=== PATIENT | male | born 1960 | race Caucasian/White ===

== ENCOUNTER → 2021-08-01 13:53 | Outpatient (BNVA) | payer OTHER, SELFPAY | PROVIDERS: Visit Provider Nurse Practitioner Family | DX: G43.109 Migraine with aura, not intractable, without status migrainosus (principal); M47.27 Other spondylosis with radiculopathy, lumbosacral region; M53.3 Sacrococcygeal disorders, not elsewhere classified; I73.9 Peripheral vascular disease, unspecified; B94.8 Sequelae of other specified infectious and parasitic diseases; G89.4 Chronic pain syndrome | CPT/HCPCS: 99202 ==

== ENCOUNTER → 2021-08-29 14:11 | Outpatient (BNVA) | payer OTHER, SELFPAY | PROVIDERS: PCP Registered Nurse; Visit Provider Nurse Practitioner Family | DX: Z13.89 Encounter for screening for other disorder (principal) | CPT/HCPCS: Q3014 ==

== ENCOUNTER → 2021-11-03 10:12 | Outpatient (BNVA) | payer OTHER, SELFPAY | PROVIDERS: PCP Registered Nurse; Visit Provider Anesthesiology | DX: M53.3 Sacrococcygeal disorders, not elsewhere classified (principal); M47.27 Other spondylosis with radiculopathy, lumbosacral region; I73.9 Peripheral vascular disease, unspecified; G89.4 Chronic pain syndrome; G43.109 Migraine with aura, not intractable, without status migrainosus | CPT/HCPCS: Q3014 ==

== ENCOUNTER 2021-11-21 06:21 | Outpatient (REF) | payer OTHER, SELFPAY ==
--- NOTE | ~2021-11-21 | FL_ITS ---
EXAMINATION: XR FLUOROSCOPY WITH IMAGES CLINICAL INFORMATION: M47.27 - Other spondylosis with radiculopathy, lumbosacral region [facility] TECHNIQUE: Fluoroscopy performed by Dr. Yakov Alfonso. Fluoroscopy time: 3 seconds DAP: 2.06 Gycm2 Images: 1 FINDINGS: There is a spinal needle overlying the outer right L5 neural foramen. There is transforaminal epidural contrast seen. No visible vascular communication. There are scattered artifactual ringlike densities overlying the image possibly contacts from an abdominal wall mesh. FL/FL guidance in treatment room IMPRESSION: Fluoroscopy for pain management procedures.
== END 2021-11-21 06:22 | disposition home or self-care (01) ==
LOC: HO.RADIR 06:21
PROVIDERS: Visit Provider Anesthesiology
DX: M47.27 Other spondylosis with radiculopathy, lumbosacral region (principal); M53.3 Sacrococcygeal disorders, not elsewhere classified; I73.9 Peripheral vascular disease, unspecified; G89.4 Chronic pain syndrome; G43.109 Migraine with aura, not intractable, without status migrainosus
CPT/HCPCS: 64483; J3300; Q9966

== ENCOUNTER → 2021-12-08 14:50 | Outpatient (BNVA) | payer OTHER, SELFPAY | PROVIDERS: PCP Registered Nurse; Visit Provider Anesthesiology | DX: S06.4X9A Epidural hemorrhage with loss of consciousness of unspecified duration, initial encounter (principal); G06.2 Extradural and subdural abscess, unspecified | CPT/HCPCS: Q3014 ==

== ENCOUNTER 2021-12-14 19:20 | Outpatient (REF) | payer OTHER, SELFPAY ==
--- NOTE | ~2021-12-14 | MR_ITS ---
EXAMINATION: MR LUMBAR SPINE WITHOUT CONTRAST CLINICAL INFORMATION: Epidural hemorrhage. Loss of consciousness. Lower back pain. Bilateral leg pain and weakness. COMPARISON: Lumbar spine MRI from 08/17/2021. TECHNIQUE: MRI of the lumbar spine was obtained using routine sequences without contrast. FINDINGS: Normal anatomic alignment. Normal, homogeneous marrow signal throughout. The vertebral body heights are maintained. Mild degenerative disc disease from T11-L5 with partial loss of disc height and desiccation. The conus medullaris terminates at the level of L1. The distal spinal cord is normal in appearance. Mild subcutaneous edema within the soft tissues of the back from L2-L5. No additional significant abnormalities of the paraspinal musculature. There is a 4.2 cm T2 hyperintense cyst associated with the right kidney. Otherwise, limited evaluation of the intra-abdominal structures without significant abnormalities. Retroaortic left renal vein. The abdominal aorta is of normal contour and caliber. AXIAL SPINAL LEVELS: L1-L2: Mild diffuse disc bulge. There is no facet joint arthropathy. There is no neural foraminal stenosis. There is no spinal canal stenosis. L2-L3: Mild diffuse disc bulge. There is mild bilateral facet joint arthropathy. There is mild bilateral neural foraminal stenosis. There is no spinal canal stenosis. L3-L4: Mild diffuse disc bulge. There is moderate right and mild left facet joint arthropathy. There is moderate left and mild right neural foraminal stenosis. There is narrowing of the subarticular zones with no overt spinal canal stenosis centrally. L4-L5: Mild diffuse disc bulge. There is moderate left and mild right facet joint arthropathy. There is moderate left and mild right neural foraminal stenosis. There is stenosis of the subarticular zones with no overt spinal canal stenosis centrally. L5-S1: Mild diffuse disc bulge. There is moderate bilateral facet joint arthropathy. There is mild bilateral neural foraminal stenosis. There is no spinal canal stenosis. MR/MR lumbar spine wo con IMPRESSION: Mild to moderate multilevel degenerative spondyloarthropathy of the lumbar spine as described in detail above. Most notably, there are narrowing/stenoses of the subarticular zones and moderate neural foraminal stenoses at L3-L4 and L4-L5. No overt spinal canal stenosis centrally.
== END 2021-12-14 19:21 | disposition home or self-care (01) ==
LOC: HO.MRI 19:20
PROVIDERS: Visit Provider Anesthesiology
DX: S06.4X9A Epidural hemorrhage with loss of consciousness of unspecified duration, initial encounter (principal)
CPT/HCPCS: 72148

== ENCOUNTER → 2022-01-02 14:43 | Outpatient (BNVA) | payer OTHER, SELFPAY | PROVIDERS: PCP Registered Nurse; Visit Provider Nurse Practitioner Family | DX: G43.109 Migraine with aura, not intractable, without status migrainosus (principal); I73.9 Peripheral vascular disease, unspecified; M53.3 Sacrococcygeal disorders, not elsewhere classified; M47.27 Other spondylosis with radiculopathy, lumbosacral region; G89.4 Chronic pain syndrome | CPT/HCPCS: Q3014 ==

== ENCOUNTER → 2022-02-01 14:04 | Outpatient (BNVA) | payer OTHER, SELFPAY | PROVIDERS: PCP Registered Nurse; Visit Provider Nurse Practitioner Family | DX: G89.4 Chronic pain syndrome (principal); M53.3 Sacrococcygeal disorders, not elsewhere classified; M47.27 Other spondylosis with radiculopathy, lumbosacral region; M51.36 Other intervertebral disc degeneration, lumbar region; G43.109 Migraine with aura, not intractable, without status migrainosus; I73.9 Peripheral vascular disease, unspecified | CPT/HCPCS: 99212 ==

== ENCOUNTER 2025-03-29 13:27 | Outpatient (AMB) | payer OTHER, SELFPAY ==
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
[2025-03-29 13:42] VITALS: BP 162/80; PULSE 66; O2SAT 97
--- OUTSIDE RECORDS SUMMARY | 2025-03-29 16:36 | XMS_ITS | Encounter Summary ---
Author Organization [facility] Address [address] [place] [address] Encounters * CPT with Leobardo Reyes at [facility] on 2024-11-20 63 y/o male Patient seen by PCP for virtual visit for report of gout flare located in new location, right heel.Patient was treated with short course of prednisone 10 mg 3 tablets daily x 5 days. Patient completed treatment Saturday noting relief, however, patient has since returned to right heel. PCP request visit to assess to r/o other infection or other non-gout causes. { reasonForRequest : pain , patientReports : , denies& quot;:[], chiefComplaints : Extremity Pain , pmh : Hypertension,COPD/Asthma, Coronary Artery Disease, Diabetes Mellitus Type 2, Sleep Apnea, Gout, Chronic Pain", allergies : Latex, Butrans, Duloxetine, Tramadol , otherAllergies : null, painAssessment : , visitOutcome : , additionalComments : HPI reviewed } Dispatched to the call address for the male with heel pain. Pt was seen via telehealth visit by hisPCP after having gout pain in his right heel for 2 weeks. She prescribed him 5 days of low dose Prednisone which did help but after a day and a half of finishing the script he started having the painagain. He called his PCP back who requested [facility] visit to rule out infection. Pt states the pain hurts exactly like his other gout flair ups. He has tried other medications but none of which have helped. Pt denies chest pain, difficulty breathing/SoB, n/v/d, cough or other complaints at this time. Pt was found sitting in living room recliner, CAOx4, airway open and patent, breathing non labored,able to speak in full sentences, -JVD, -HEENT, skin PWD with good turgor, mucous membranes pink andmoist, pupils PERRL, abd soft non tender/distended, lungs CTA, +CMSx4, right heel slightly swollen but no erythema or warmth noted-non infected appearing. Gout Pt was assessed. Picture of affected foot uploaded for [facility]. [facility] consulted. [facility] spoke directly with Pt. POC Finger stick blood glucose (205). Script called into preferred pharmacy. Red flags discussed. ALL times are approx. IV_(FLUIDS_AND/OR_MEDICATION), MEDICATION_IM, ORAL_MEDICATION, WOUND_CARE, ORTHOSTATIC_VITAL_SIGNS Written by Leobardo Reyes on 2024-11-20
--- OUTSIDE RECORDS SUMMARY | 2025-03-29 16:36 | XMS_ITS | Continuity of Care Document ---
Author Name Leobardo Reyes Address [address] [place] [id number] Organization Unknown Address [address] [place] [address] Medications No known medications Problems No known problems
--- OUTSIDE RECORDS SUMMARY | 2025-03-29 16:36 | XMS_ITS | Clinical Summary ---
Author Organization [facility] Address [address] [place] [address] Phone Care Team Providers Care Spearer Name Role Phone Padma Cartagena MD Primary Care Provider + Allergies Active Allergy Reactions Criticality Noted Date Comments Buprenorphine 06/12/2024 Mood changes Duloxetine 06/12/2024 Mood changes Latex Rash Medium 07/02/2024 Thiazides Other High 11/21/2022 Kidney failure Tramadol Nausea And Vomiting 06/12/2024 Medications aspirin 81 mg EC tablet Take 1 tablet (81 mg total) by mouth 1 (one) time each day. Active amLODIPine (NORVASC) 10 mg tablet Take 1 tablet (10 mg total) by mouth 1 (one) time each day. Active acetaminophen (TYLENOL 8 HOUR) 650 mg 8 hr tablet Take 1 tablet (650 mg total) by mouth every 8 (eight) hours if needed. Active clopidogreL (PLAVIX) 75 mg tablet Take 1 tablet (75 mg total) by mouth 1 (one) time each day. Active fluticasone propionate (FLONASE) 50 mcg/actuation nasal spray Administer 1 spray into each nostril 1 (one) time each day. Shake gently. Before first use, prime pump. After use, clean tip and replace cap. Active hydrALAZINE (APRESOLINE) 25 mg tablet Take 1 tablet (25 mg total) by mouth 2 (two) times a day. Active lisinopril (PRINIVIL,ZESTRIL) 40 mg tablet Take 1 tablet (40 mg total) by mouth 1 (one) time each day. Active melatonin 3 mg tablet Take 1 tablet (3 mg total) by mouth at bedtime. Active metFORMIN XR (GLUCOPHAGE-XR) 750 mg 24 hr tablet Take 1 tablet (750 mg total) by mouth 1 (one) time each day with dinner. Do not crush, chew, or split. Active metoprolol succinate (TOPROL-XL) 100 mg 24 hr tablet Take 1 tablet (100 mg total) by mouth 1 (one) time each day. Do not crush or chew. Active nitroglycerin (NITROSTAT) 0.[address] 1 tablet (0.4 mg total) under the tongue every 5 (five) minutes if needed for chest pain. Active ondansetron ODT (ZOFRAN-ODT) 4 mg disintegrating tablet Dissolve 1 tablet (4 mg total) on top of the tongue every 8 (eight) hours if needed for nausea or vomiting. Active alirocumab (Praluent Pen) 75 mg/mL pen injector Inject 1 mL (75 mg total) under the skin every 14 (fourteen) days. Active rosuvastatin (CRESTOR) 5 mg tablet Take 1 tablet (5 mg total) by mouth 1 (one) time each day. Active tamsulosin (FLOMAX) 0.4 mg 24 hr capsule Take 1 capsule (0.4 mg total) by mouth 1 (one) time each day. Capsules should be taken 30 minutes following the same meal each day. Active albuterol HFA (Ventolin HFA) 90 mcg/actuation inhaler Inhale 2 puffs by mouth every 6 (six) hours if needed for wheezing. Active cholecalciferol (VITAMIN D-3) 50 mcg (2,000 unit) tablet Take 1 tablet (2,000 Units total) by mouth 1 (one) time each day. Active polyethylene glycol (Golytely) 236-22.74-6.74 -5.86 gram solution Take 4L by mouth once for one dose. May substitue any PEG. Starting at 6PM the night before your procedure drink 1 8oz glasses at your own pace until you complete half of the gallon. Finish 2nd half of the gallon 5 hours before your procedure. 4000 mL 10/14/19 25 Active Additional Information Patient not taking.Reported on 10/15/2024 bisacodyL (DULCOLAX) 5 mg EC tablet Take 2 tablets by mouth right before beginning bowel prep. See instructions provided by the office 2 tablet 10/14/19 25 Active Active Problems Problem Noted Date Diagnosed Date Carotid disease, bilateral ([facility] V24) 021 Overview (06/26/2024): Last Assessment & Plan: He does not want go back to the same vascular team for follow-up. I will arrange carotid duplex. If necessary, I will refer him to a different vascular team. Coronary artery disease involving coronary bypas s graft 10/20/2020 Overview (06/26/2024): Last Assessment & Plan: Stable without angina symptoms. I will repeat lipid profile. He is on Praluent injection and tolerating well. He is cleared for epidural injection. Hyperlipidemia 10/20/2020 Overview (06/26/2024): Last Assessment & Plan: With poor tolerance to statin. Hypertension 10/20/2020 Overview (06/26/2024): Last Assessment & Plan: Blood pressure mildly elevated. I will resume Avapro at 75 mg daily. Surgical History Surgery Date Site/Laterality Comments CYSTOSCOPY INSERTION / REMOV AL STENT / STONE CORONARY ARTERY BYPASS GRAFT Bilateral B CAROTID STENTS HERNIA REPAIR CAROTID ENDARTERECTOMY Left x2 surgeries CARDIAC CATHETERIZATION with stent placement Medical History Medical History Date Comments Dysphagia DX:Dysphagia Diabetes mellitus type 2, co ntrolled, with complications ([facility] V24, [facility] V28) DX:Diabetes mellitus type 2, controlled, with complications ([facility]) Gastric regurgitation DX:Gastric regurgitation Nausea and vomiting DX:Nausea an d vomiting/related to migrane Functional dyspepsia DX:Function al dyspepsia Hx of migraine headaches DX:Hx o f migraine headaches Adverse effect of anesthesia LUIS EDUARDO D TIME PUTTING PT ASLEEP Chronic kidney disease STONES Stroke ([facility] V24, [facility] V28) SEVERAL TIA Arthritis Joint pain Angina pectoris ([facility] V24) Heart disease , CAROTID STENOS IS, CAD Peripheral vascular disease ([facility] V24) Hypertension Hyperlipidemia Social History Tobacco Use Types Packs/Day Years Used Date Smoking Tobacco: Every Day Cigarettes Smokeless Tobacco: Never Tobacco Cessation:Ready to Q uit: Not Asked; Counseling Given: Not Answered Alcohol Use Standard Drinks/Week Comments Not Currently 0 (1 standard drink = 0.6 oz pur e alcohol) Interpersonal Safety Answer Date Record ed Physical Abuse Unrecognized value 07/31/2024 Verbal Abuse Unrecognized value 07/31/2024 Sex and Gender Information Value Date Recorded Sex Assigned at Male 07/30/2024 12:22 PM EST Legal Sex Male 1:27 AM EST Gender Identity Male 07/30/2024 12:22 PM EST Sexual Orientation Straight 07/30/2024 12 :22 PM EST Obstetrics History Last Filed Vital Signs Vital Sign Reading Time Taken Comments Blood Pressure 116/64 10/15/2024 3:17 PM EDT Pulse 82 10/15/2024 3:17 PM EDT Temperature 36.9 C (98.4 F) 07/31/2024 1:01 PM EST Respiratory Rate 20 07/31/2024 1:01 PM EST Oxygen Saturation 95% 10/15/2024 3:17 PM EDT Inhaled Oxygen Concentration - - Weight 90.7 kg (200 lb) 10/15/2024 3:17 PM EDT Height 175.3 cm (5' 9 ) 10/15/2024 3:17 PM EDT Body Mass Index 29.53 10/15/2024 3:17 PM EDT Plan of Treatment Upcoming Encounters Date Type Department Care Team (Late st Contact Info) Description 04/12/2025 3:00 PM EST Office Visit [facility] [address] [place] [phone] Gerson Hoffman MD [address] [place] [phone] 05/20/2025 1:00 PM EST Office Visit [facility] [address] [facility] [address] [place] [phone] Robbin Patel MD [address] [place] [address] [place] [phone] Health Maintenance Due Date Last Done Comments Abdominal Aortic Aneurysm (AAA) Screen 05/19/2022 Hepatitis C Screening 05/19/2022 Medicare Annual Wellness Visit 05/19/2022 Social Influencers of Health Screening 05/19/2022 Hypertension/CHF/CAD Annual BMP Blood Test 05/20/2022 09/12/2002 Depression Screening 06/10/2024 Colorectal Cancer Screening: Colonoscopy 08/12/2024 08/13/2019 COVID-19 Vaccine (6 - Mixed Product risk season) 2025 05/01/2024, 04/24/2023, 04/13/2022, Additional history exists Influenza Vaccine (#1) 2025 , 07/03/2023, 04/13/2022, Additional history exists Falls Risk Assessment 07/31/2025 07/31/2024 Cholesterol Screening (Lipid Panel) 06/19/2027 06/19/2022 DTaP,Tdap,and Td Vaccines (2 - Td or Tdap) 07/20/2030 07/20/2020 Zoster Vaccines Completed 10/03/2020, 07/20/2020 Pneumococcal Vaccine: 50+ Years Completed 11/19/2022, 03/10/2020 RSV Immunization Adult Patients Completed 04/24/2023 HIB Vaccines Aged Out No longer eligi ble based on patient's age to complete this topic HPV Vaccines Aged Out No longer eligi ble based on patient's age to complete this topic Hepatitis A Vaccines Aged Out No long er eligible based on patient's age to complete this topic Hepatitis B Vaccines Aged Out No long er eligible based on patient's age to complete this topic IPV Vaccines Aged Out No longer eligi ble based on patient's age to complete this topic MMR Vaccines Aged Out No longer eligi ble based on patient's age to complete this topic Meningococcal ACWY Vaccine Aged Out N o longer eligible based on patient's age to complete this topic Meningococcal B Vaccine Aged Out No l onger eligible based on patient's age to complete this topic RSV Immunization Patients Under 20 months Aged Out No longer eligible based on patient's age to complete this topic Varicella Vaccines Aged Out No longer eligible based on patient's age to complete this topic Procedures Procedure Name Priority Date/Time Associated Diagnosis Comments LIPID PANEL Routine 06/19/2022 [facility] COLONOSCOPY Routine 08/13/2019 ANNUAL BMP BLOOD TEST Routine 09/12/2002 from Last 3 Months or Most Recently Relevant to Health Maintenance Results * (ABNORMAL) Lipid panel (06/19/2022) [facility] LDL/HDL Ratio 6(A) 1 - 5 Triglycerides 319(A) 10 - 160 mg/dL Cholesterol 244(A) 10 - 240 mg/dL HDL 42 32 - 96 mg/dL LDL Cholesterol 138 62 - 185 mg/dL Blood Venous blood specimen / Unknown Historical Provider LAB BLOOD ORDERABLES Victorina l Result * Colonoscopy (08/13/2019) [facility] Colonoscopy no interpretation , abstracted Anatomical Region Laterality Modality Other [facility] Provider HEALTH MAINTENANCE Final Result * Annual BMP Blood Test (09/12/2002) [facility] Annual BMP Blood Test abstracted Historical Provider HEALTH MAINTENANCE Final Result from Last 3 Months or Most Recently Relevant to Health Maintenance Insurance [employer] Member Subscriber Plan / Payer (Ef fective 2019-Present) Name:BARTOLOME PUGH Relation to Subscriber:Self Name:Bartolome Pugh Payer ID:[id number] Group ID:[id number] Type:Not on file Address: [place] [address] [place] [phone] Care Teams Spearer Relationship Specialty Start Date End Date Padma Cartagena MD PCP - General Internal Medicine 06/12/24
== END 2025-03-29 15:12 | disposition home or self-care (01) ==
LOC: HO.HSMS 13:28
PROVIDERS: PCP Registered Nurse; Visit Provider Nurse Practitioner Family
DX: R51.9 Headache, unspecified (principal); G45.9 Transient cerebral ischemic attack, unspecified; G44.229 Chronic tension-type headache, not intractable; B94.8 Sequelae of other specified infectious and parasitic diseases; I73.9 Peripheral vascular disease, unspecified; I65.29 Occlusion and stenosis of unspecified carotid artery
CPT/HCPCS: 99204

== ENCOUNTER → 2025-03-29 13:27 | Outpatient (BNVA) | payer OTHER, SELFPAY | PROVIDERS: PCP Registered Nurse; Visit Provider Nurse Practitioner Family | DX: G44.229 Chronic tension-type headache, not intractable (principal); B94.8 Sequelae of other specified infectious and parasitic diseases; I73.9 Peripheral vascular disease, unspecified; I65.29 Occlusion and stenosis of unspecified carotid artery | CPT/HCPCS: 99202 ==

== ENCOUNTER → 2025-05-14 12:39 | Outpatient (BNV) | payer OTHER, SELFPAY | PROVIDERS: Visit Provider Radiology Diagnostic Radiology | DX: I67.82 Cerebral ischemia (principal); R90.82 White matter disease, unspecified; I65.23 Occlusion and stenosis of bilateral carotid arteries; R51.9 Headache, unspecified | CPT/HCPCS: 70544; 70549; 70553 ==

== ENCOUNTER 2025-05-14 12:49 | Outpatient (REF) | payer OTHER, SELFPAY ==
--- NOTE | ~2025-05-14 | MR_ITS ---
EXAMINATION: MR ANGIOGRAPHY NECK WITHOUT AND WITH CONTRAST CLINICAL INFORMATION: Headache, unspecified. COMPARISON: None available. TECHNIQUE: MRA of the neck was obtained using routine sequences without and with contrast. Intravenous contrast: Gadavist 10 mL. The degree of stenosis determined by criteria similar to NASCET. FINDINGS: 2-D [id number] imaging demonstrates and retrograde flow in the bilateral carotid and bilateral vertebral arteries. 3-D [id number] imaging and postcontrast imaging demonstrates a mild to moderate, approximate 40% stenosis of the mid right common carotid artery (series 7, image 29). There is loss of flow-related enhancement at the right carotid bulb, extending into the proximal ICA, consistent with a high-grade, likely 90% stenosis. Loss of flow related enhancement spans approximately 3.1 cm craniocaudal spanning the most distal CCA into the carotid bulb, and into the proximal ICA. On the LEFT, there is normal flow-related enhancement of the CCA to the level of the carotid bulb. Irregular plaque within the carotid bulb and proximal ICA results in a short segment proximal ICA stenosis of approximately 50% (series 12, image 30), spanning a length of approximately 7 mm. The right vertebral artery demonstrates antegrade flow, however there is a high-grade stenosis in the mid V2 segment (series 12, image 49; series 1063, image 3). There may also be a high-grade origin stenosis present (series 1063, image 4). There is restitution of flow related enhancement after this region with antegrade flow into the skull base. The left vertebral artery is dominant, however there is severely diminished flow related enhancement in the origin suggesting a high-grade stenosis (series 1077, image 9).. The vessel otherwise demonstrates normal flow related enhancement into the skull base. MR/MR angio neck wo/w con IMPRESSION: 1. There is an approximate 90% stenosis of the RIGHT proximal ICA, with reconstitution of flow related enhancement in the more distal RIGHT ICA. 2. There is an approximate 40% stenosis in the mid RIGHT CCA. 3. There is a moderate approximate 50% short segment stenosis of the LEFT ICA just after the origin, with reconstitution of normal flow related enhancement in the more distal left ICA. 4. There is a suspected high-grade stenosis at the origin of the LEFT vertebral artery. There is otherwise normal antegrade flow related enhancement within the remainder of the vessel into the skull base. 5. There is a suspected high-grade focal stenosis in the mid RIGHT vertebral artery V2 segment, with otherwise normal antegrade flow in the remainder of the vessel into the skull base. In addition there is a suspected high-grade stenosis at the origin of the RIGHT vertebral. Electronically signed by: Richmond Morales MD 05/14/2025 03:52 PM [facility]
--- NOTE | ~2025-05-14 | MR_ITS ---
EXAMINATION: MR ANGIOGRAPHY BRAIN WITHOUT CONTRAST CLINICAL INFORMATION: Headache, unspecified. COMPARISON: No prior. Correlation made with MR angiography of the neck performed concurrently. TECHNIQUE: 3-D [id number] MR angiography of the head was performed utilizing standard techniques. Multiplanar and 3-D MIP reformats were reconstructed from the axial data set. FINDINGS: ANTERIOR CIRCULATION: There is normal flow related enhancement within the anterior circulation. There is no evidence of stenosis, medium to large sized aneurysm, occlusion, or flow gap. POSTERIOR CIRCULATION: Within the posterior circulation, there is diminished flow related enhancement within the V4 segment of the right vertebral artery. There is jain of flow related enhancement within the basilar artery. The findings are nonspecific but are suggestive of slow flow resultant from a more proximal right vertebral artery high-grade stenosis. There is normal flow-related enhancement within the left vertebral artery V4 segment, the basilar artery, and its branches. Basilar tip is normal. The P1 segments of the posterior cerebral arteries are diminutive, with partial origins of both clinical research technician noted. MR/MR angio head wo con IMPRESSION: 1. Diminished flow-related enhancement within the right vertebral artery V4 segment. This finding is likely secondary to the known mid significant V2 stenosis and origin stenosis. Further characterization with CT angiogram may be of benefit, if felt clinically warranted. 2. There are partial origins of the clinical research technician bilaterally. 3. The remainder of the examination is normal. Electronically signed by: Richmond Morales MD 05/14/2025 03:54 PM [facility]
--- NOTE | ~2025-05-14 | MR_ITS ---
EXAMINATION: MR BRAIN WITHOUT AND WITH CONTRAST CLINICAL INFORMATION: Headache, unspecified. COMPARISON: None available. Correlation made with MRA of the head and neck performed concurrently. TECHNIQUE: Multiplanar, multisequence MRI of the brain was obtained before and after the intravenous administration of 10 mL Gadavist. Examination performed on a 1.5 Mansi Siemens high-field unit. FINDINGS: There is no diffusion restriction. There is no intracranial hemorrhage, acute infarction, mass effect, or edema. Ventricles, sulci, and cisterns are normal in size and configuration for patient age. No shift of midline. No abnormal hemosiderin deposition is identified. There are a scattered punctate and minimally confluent foci of white matter T2 hyperintensity in the periventricular, subcortical, and hemispheric deep white matter, as well as the mid tanvi. These findings are nonspecific but statistically relate to mild to moderate small vessel ischemic changes. There are tiny old lacunar infarcts present in the right posterior thalamus, and bilateral subinsular regions. There is no abnormal intra or extra-axial enhancement identified after the administration of contrast. Midline structures appear normally formed. The pituitary gland appears normal. Posterior fossa structures appear normal. Cerebellar tonsils are appropriately located. Major flow voids are preserved within the skull base. The globes and orbital contents demonstrate bilateral lens replacements. They are otherwise normal. Paranasal sinuses are clear bilaterally. Nasal septum is midline without spur. The mastoids and tympanic cavities are normally aerated. Extracranial soft tissues demonstrate no abnormalities. No suspicious bone marrow changes are evident. Atlantoaxial joint demonstrates mild to moderate degenerative arthritis. There are degenerative changes in both TM joints. MR/MR head/brain wo/w con IMPRESSION: 1. No evidence of intracranial hemorrhage, acute infarction, mass effect, or edema. There is no pathologic contrast enhancement. 2. Mild to moderate white matter changes of small vessel ischemia. 3. Tiny old lacunar type infarcts in the right posterior thalamus and bilateral subinsular regions Electronically signed by: Richmond Morales MD 05/14/2025 04:08 PM [email or web address]
== END 2025-05-14 12:50 | disposition home or self-care (01) ==
LOC: HO.MRI 12:49
PROVIDERS: Visit Provider Nurse Practitioner Family
DX: I65.23 Occlusion and stenosis of bilateral carotid arteries (principal); R51.9 Headache, unspecified; B94.8 Sequelae of other specified infectious and parasitic diseases; E78.5 Hyperlipidemia, unspecified
CPT/HCPCS: 70544; 70549; 70553; A9585